=== PATIENT | male | born 1995 | race Two or more races ===

== ENCOUNTER 2019-08-20 08:43 | Outpatient (CLI) | payer BC | END 2019-08-20 23:59 | disposition home or self-care (01) | LOC: RAD 08:43 | PROVIDERS: ATTEND Family Medicine | DX: M25.561 Pain in right knee (principal); M25.562 Pain in left knee | CPT/HCPCS: 73562 ==

== ENCOUNTER 2020-11-05 10:22 | Emergency (ER) | payer BC ==
[~2020-11-05] VITALS: Ht 172.7 cm; Wt 65.8 kg
[2020-11-05 10:33] VITALS: BP 143/71
--- NOTE | 2020-11-05 10:37 | NUR ---
patient came in to the er c/o sob and sorethroat s/p covid 19 exposure x 1 week, 99% on room air. On room air, breathing evenly and unlabored. Connected to the monitor and pulse ox. kept comfortable, will continue to monitor accordingly.
--- NOTE | 2020-11-05 11:04 | NUR ---
rapid strep collected and sent to lab
--- NOTE | 2020-11-05 11:38 | NUR ---
LAB CALLED PT COVID RESULT NEGATIVE (-)
--- NOTE | 2020-11-05 11:39 | NUR ---
Patient discharged to home in stable condition. Written and verbal after care instructions given. Patient verbalizes understanding of instruction.
== END 2020-11-05 11:39 | disposition home or self-care (01) ==
LOC: ER 10:26
DX: J06.9 Acute upper respiratory infection, unspecified (principal); Z20.822 Contact with and (suspected) exposure to COVID-19
CPT/HCPCS: 87070; 87426; 87880; 99283; C9803; U0003; 86403-TC

== ENCOUNTER 2022-04-05 08:31 | Outpatient (CLI) | payer BC | END 2022-04-05 23:59 | disposition home or self-care (01) | LOC: LAB 08:31 | PROVIDERS: ATTEND Family Medicine | DX: Z11.3 Encounter for screening for infections with a predominantly sexual mode of transmission (principal) | CPT/HCPCS: 36415; 86592; 86593; 87491; 87591; 87806 ==

== ENCOUNTER 2023-03-18 01:44 | Emergency (ER) | payer BC ==
[~2023-03-18] VITALS: Ht 175.3 cm; Wt 81.6 kg
[2023-03-18 01:56] VITALS: BP 133/79; TEMP 101.6
[2023-03-18] MEDS ORDERED: AMOX-430 PO (02:07)
[2023-03-18] MEDS ORDERED: dexaMETHasone SOD PHOSPHATE 10 MG/ML VIAL ONE (02:08)
[2023-03-18 02:28] VITALS: O2SAT 98
[2023-03-18] MEDS ORDERED: dexaMETHasone SOD PHOSPHATE 10 MG/ML VIAL MC ONE (02:30)
== END 2023-03-18 02:29 | disposition home or self-care (01) ==
LOC: ER 01:48
DX: J02.9 Acute pharyngitis, unspecified (principal); J45.909 Unspecified asthma, uncomplicated; Z79.899 Other long term (current) drug therapy
CPT/HCPCS: 99283; J1100

== ENCOUNTER 2023-03-18 12:28 | Emergency (ER) | payer BC ==
[~2023-03-18] VITALS: Ht 175.3 cm; Wt 81.6 kg
[~2023-03-18 12:28] MED LIST: AMOX-430 PO
[2023-03-18 12:46] VITALS: BP 135/83; TEMP 97.9; O2SAT 99
== END 2023-03-18 13:34 | disposition home or self-care (01) ==
LOC: ER 12:32
DX: M54.9 Dorsalgia, unspecified (principal); M54.2 Cervicalgia; R51.9 Headache, unspecified; J45.909 Unspecified asthma, uncomplicated; Z79.899 Other long term (current) drug therapy; V89.2XXA Person injured in unspecified motor-vehicle accident, traffic, initial encounter; Y93.89 Activity, other specified; Y92.89 Other specified places as the place of occurrence of the external cause; Y99.8 Other external cause status